=== PATIENT | male | born 1955 | race African-American/Black ===

== ENCOUNTER 2018-01-19 07:16 | Day surgery (SDC) | payer OTHER ==
[2018-01-18 14:12] VITALS: BMI 26.6
[2018-01-19 09:28] VITALS: TEMP 97.6
[2018-01-19 09:45] VITALS: PULSE 60
[2018-01-19 13:09] VITALS: BP 108/69
--- NOTE | 2018-01-20 15:51 | PATH ---
Surgical Pathology Report Patient Name: HUMPHREY CARVAJAL [facility]. Rec. #: [id number] /Age/Gender: 1955 (Age: 62) / M Account: [id number] Location: [facility]-ENDOSCOPY Taken: 01/19/2018 Received: 01/19/2018 Reported: 01/20/2018 Physicians: Pollo Singh M.D. Specimen(s) Received BX ANTRUM Clinical History Rule out gastritis, colon screening Postoperative diagnosis: Normal EGD, poor prep Final Diagnosis ANTRUM, BIOPSY GASTRIC MUCOSA WITH ACTIVE CHRONIC GASTRITIS. IMMUNOSTAIN IS POSITIVE FOR H. PYLORI ORGANISMS. NEGATIVE FOR INTESTINAL METAPLASIA. Electronically Signed Evelin Ren M.D. Gross Description Received in formalin, labeled "antrum" are 2 navarro, irregular portions of soft tissue measuring 0.3 and 0.5 cm. in greatest dimension. The specimens are submitted in toto in one cassette. /01/19/2018 saudi/01/19/2018
== END 2018-01-19 12:55 | disposition home or self-care (01) ==
LOC: JASU-ENDO 07:16
PROVIDERS: ATTEND Internal Medicine Gastroenterology
PROC: 0DB68ZX Excision of Stomach, Via Natural or Artificial Opening Endoscopic, Diagnostic (ICD-10-PCS; 2018-01-19)
PROC: 0DJD8ZZ Inspection of Lower Intestinal Tract, Via Natural or Artificial Opening Endoscopic (ICD-10-PCS; principal; 2018-01-19 09:00)
DX: Z12.11 Encounter for screening for malignant neoplasm of colon (principal); Z53.8 Procedure and treatment not carried out for other reasons; R10.13 Epigastric pain
CPT/HCPCS: 43239; G0121; 88305-TC; 88342-TC

== ENCOUNTER 2018-09-14 09:16 | Day surgery (SDC) | payer OTHER | END 2018-09-14 11:15 | disposition home or self-care (01) | LOC: JASU-ENDO 09:16 ==